=== PATIENT | female | born 1960 | race African-American/Black ===

== ENCOUNTER 2019-05-14 18:19 | Emergency (ER) | payer OTHER ==
[~2019-05-14] VITALS: Ht 162.6 cm; Wt 63.5 kg
[~2019-05-14 18:19] MED LIST: DOLOGESIC CAPSU1 CAP PO; GILTUSS TR TAB1 EACH PO; NORFLEX; ORPH100T PO; PNEU16DI2; PROVENTIL3 ML/2.5 M IH; TRAMADOL HCL-AP1 TAB PO; ULTRAM50 MG PO; ZITHROMAX500 MG PO
== END 2019-05-14 23:10 | disposition home or self-care (01) ==
LOC: ER 18:19
DX: J11.1 Influenza due to unidentified influenza virus with other respiratory manifestations (principal); B96.0 Mycoplasma pneumoniae [M. pneumoniae] as the cause of diseases classified elsewhere

== ENCOUNTER 2021-04-28 14:02 | Emergency (ER) | payer OTHER ==
[~2021-04-28] VITALS: Ht 162.6 cm; Wt 65.8 kg
[2021-04-28] MEDS ORDERED: CHILDREN'S ASPI81 MG PO (14:17)
== END 2021-04-28 14:46 | disposition home or self-care (01) ==
LOC: ER 14:02
DX: B34.9 Viral infection, unspecified (principal); I10 Essential (primary) hypertension

== ENCOUNTER 2021-09-04 13:26 | Emergency (ER) | payer OTHER ==
[~2021-09-04] VITALS: Ht 162.6 cm; Wt 63.5 kg
[~2021-09-04 13:26] MED LIST changes: +CHILDREN'S ASPI81 MG PO
== END 2021-09-04 16:42 | disposition home or self-care (01) ==
LOC: ER 13:26
DX: R10.2 Pelvic and perineal pain (principal)

== ENCOUNTER 2022-06-09 14:35 | Emergency (ER) | payer OTHER ==
[~2022-06-09] VITALS: Ht 167.6 cm; Wt 65.8 kg
[2022-06-09] MEDS ORDERED: CEFADROXIL500 MG PO (16:40)
== END 2022-06-09 16:56 | disposition home or self-care (01) ==
LOC: ER 14:35
DX: S81.851A Open bite, right lower leg, initial encounter (principal); W54.0XXA Bitten by dog, initial encounter; Y93.9 Activity, unspecified; Y92.9 Unspecified place or not applicable; Y99.9 Unspecified external cause status

== ENCOUNTER 2022-12-01 06:33 | Emergency (ER) | payer OTHER ==
[~2022-12-01] VITALS: Ht 162.6 cm; Wt 63.5 kg
[~2022-12-01 06:33] MED LIST changes: +CEFADROXIL500 MG PO
== END 2022-12-01 13:06 | disposition home or self-care (01) ==
LOC: ER 06:33
DX: M54.30 Sciatica, unspecified side (principal)

== ENCOUNTER → 2023-03-08 | Emergency (ER) | payer OTHER ==
[~2023-03-08] VITALS: Ht 162.6 cm; Wt 63.5 kg
[~2023-03-08] MED LIST changes: +NORVASC10 MG PO
== END | disposition left against medical advice (07) ==
LOC: ER 11:59
DX: Z53.21 Procedure and treatment not carried out due to patient leaving prior to being seen by health care provider (principal)